=== PATIENT | female | born 1995 | race Two or more races ===

== ENCOUNTER 2025-11-25 10:31 | Inpatient (IN) | payer OTHER ==
[~2025-11-25] VITALS: Ht 165.1 cm; Wt 105.4 kg
[2025-11-25] VITALS (8 sets, daily range): BP systolic 113–128; BP diastolic 62–67; PULSE 96–130; RESP 24–60; TEMP 98.7–99.8; O2SAT 99–100
[2025-11-25 10:55] LABS: ABG BASE EXCESS 3.2 mmol/L (-2.0-3.0); ABG CARBOXYHEMOGLOBIN 1.6 % (0.5-1.5); ABG HCO3 26.7 mmol/L (21.0-28.0); ABG METHEMOGLOBIN 0.9 % (0.0-1.5); ABG OXYGEN CONTENT 17.7 mL/dL (15.0-23.0); ABG OXYGEN SATURATION 99.8 % (94.0-98.0); ABG OXYHEMOGLOBIN 97.3 % (94.0-98.0); ABG PCO2 50 mmHg (32.0-45.0); ABG PH 7.374 (7.350-7.450); ABG TOTAL HEMOGLOBIN 12.7 G/dL (12.0-16.0); FRACTIONATED INSPIRED OXYGEN 100.0 % (21-100.0); PO2, ARTERIAL BG 180.0 mmHg (83.0-108.0); SOURCE, BLOOD GAS ARTERIAL; TEMPERATURE, FAHRENHEIT, BG 98.6 FAHREN (96.0-98.6)
[2025-11-25 10:57] LABS: ALLEN TEST, BLOOD GAS POS; O2 DEVICE,BLOOD GAS BIPAP (ROOM AIR); PATIENT RATE, BG 62.0 min.; SET RATE, BG 24.0 min.; SITE, BLOOD GAS RT RADIAL; SPONTANEOUS VT, BG 443 ml
[2025-11-25 10:58] LABS: INSPIRATORY TIME, BG 0.9 SEC
[2025-11-25] MEDS: FUROSEMIDE 40 MG/4 ML VIAL IVP ONE (11:00)
[2025-11-25] MEDS: NITROGLYCERIN 2% (1 GM=INCH) OINTMENT PACKET TP ONE (11:00)
[2025-11-25 11:01] LABS: PLATELET COUNT (AUTO) 414 K/uL (150-450); RED BLOOD CELL COUNT(AUTO) 4.57 MIL/uL (4.00-5.20); RED CELL DISTRIBUTION WIDTH 16.2 % (11.5-14.5); WHITE BLOOD COUNT (AUTO) 18.9 K/uL (4.5-11.0)
[2025-11-25 11:02] LABS: RBC MORPHOLOGY COMMENT ABNORMAL RBC MORPH
[2025-11-25 11:10] LABS: CALCIUM, TOTAL 8.4 mg/dL (8.8-10.5); CREATININE 0.87 mg/dL (0.60-1.30); GLOMERULAR FILTR. RATE CALC > 60 mL/min (>60); GLUCOSE,RANDOM 161 mg/dL (70-110); SODIUM SERUM 136 mmol/L (136-145); UREA NITROGEN, BLOOD 11 mg/dL (7-18)
[2025-11-25 11:19] LABS: TROPONIN I-HIGH SENSITIVITY 29 ng/L (<51)
[2025-11-25 11:56] LABS: LACTIC ACID 2.7 mmol/L (0.4-2.0)
[2025-11-25] MEDS: ACETAMINOPHEN 1000 MG/ISO-OSM 100 ML IV ONE (12:03)
[2025-11-25] MEDS: CefTRIAXone 1 GM/DEXTROSE 50 ML IV ONE (12:31)
[2025-11-25] MEDS: AZITHROMYCIN 500 MG/NS 250 ML IV ONE (12:31)
[2025-11-25] MEDS: SODIUM CHLORIDE 0.9% 1,000 ML IV ONE ×2 (12:32→13:30)
[2025-11-25 12:38] LABS: APPEARANCE,URINE CLEAR (CLEAR); GLUCOSE, URINE (UA) NEGATIVE (NEGATIVE); LEUKOCYTE ESTERASE ,URINE NEGATIVE (NEGATIVE); NITRATE,URINE NEGATIVE (NEGATIVE); OCCULT BLOOD,URINE NEGATIVE (NEGATIVE); SPECIFIC GRAVITIY, URINE 1.009 (1.003-1.030)
[2025-11-25] MEDS: *CLINICAL-LEVOFLOXACIN IVPB DOSING CLINICAL ONE (12:42)
[2025-11-25] MEDS ORDERED: ALBUTEROL SULFATE 2.5 MG/0.5 ML NEB SOLUTION NEB PRN (12:45)
[2025-11-25] MEDS ORDERED: ONDANSETRON HCL 4 MG/2 ML VIAL IVP PRN (12:45)
[2025-11-25] MEDS ORDERED: ACETAMINOPHEN 325 MG TABLET PO PRN (12:45)
[2025-11-25] MEDS ORDERED: MAGNESIUM HYDROXIDE SUSPENSION 30 ML UDCUP PO PRN (12:45)
[2025-11-25] MEDS: KETOROLAC TROMETHAMINE 30 MG/ML VIAL IVP ONE (13:25)
[2025-11-25] MEDS: LEVOFLOXACIN 750 MG/D5% WATER 150 ML IV SCH (13:37)
[2025-11-25 13:44] LABS: ASPARTATE AMINOTRANSFERASE 17.0 U/L (15-37); TOTAL PROTEIN, SERUM 7.4 g/dL (6.4-8.2)
[2025-11-25] MEDS: HEPARIN SODIUM,PORCINE 5,000 UNITS/ML VIAL SQ SCH (16:08)
[2025-11-25 17:17] LABS: INFLUENZA A-RTPCR,COMBO NEGATIVE (NEGATIVE); INFLUENZA B-RTPCR,COMBO NEGATIVE (NEGATIVE); RESPIRATORY SYNCYTIAL VRS-PCR NEGATIVE (NEGATIVE); SARS COVID19 RTPCR, COMBO NEGATIVE (NEGATIVE)
[2025-11-25] MEDS: HYDROCORTISONE SOD SUCC 100 MG/2 ML VIAL IVP SCH (19:14)
[2025-11-25] MEDS: DOCUSATE SODIUM 100 MG CAPSULE PO SCH (20:27)
[2025-11-25] MEDS: PIPERACILLIN/TAZO 3.375 GM/D5W 50 ML IV SCH (21:13)
[2025-11-25] MEDS: CHLORHEXIDINE GLUCONATE 2% TOWELETTE [2'S/6'S] TP SCH (21:14)
[2025-11-25] MEDS ORDERED: SODIUM CHLORIDE 0.9% 250 ML IV ONE (21:34)
[2025-11-26] VITALS (9 sets, daily range): BP systolic 115–137; BP diastolic 70–92; PULSE 87–109; RESP 15–29; TEMP 98.1–99.3; O2SAT 95–100
[2025-11-26 07:16] LABS: PLATELET COUNT (AUTO) 367 K/uL (150-450); RED BLOOD CELL COUNT(AUTO) 3.88 MIL/uL (4.00-5.20); RED CELL DISTRIBUTION WIDTH 15.7 % (11.5-14.5); WHITE BLOOD COUNT (AUTO) 15.3 K/uL (4.5-11.0)
[2025-11-26 07:20] LABS: CALCIUM, TOTAL 8.3 mg/dL (8.8-10.5); CREATININE 0.64 mg/dL (0.60-1.30); GLOMERULAR FILTR. RATE CALC > 60 mL/min (>60); GLUCOSE,RANDOM 133 mg/dL (70-110); SODIUM SERUM 137 mmol/L (136-145); UREA NITROGEN, BLOOD 13 mg/dL (7-18)
[2025-11-26] MEDS: FAMOTIDINE 20 MG TABLET PO SCH (08:42)
[2025-11-26 11:47] LABS: ABG A-A DIFF O2 116.3 mmHg (10-20.0); ABG BASE EXCESS 3.8 mmol/L (-2.0-3.0); ABG CARBOXYHEMOGLOBIN 0.6 % (0.5-1.5); ABG HCO3 27.3 mmol/L (21.0-28.0); ABG METHEMOGLOBIN 0.3 % (0.0-1.5); ABG OXYGEN CONTENT 14.3 mL/dL (15.0-23.0); ABG OXYGEN SATURATION 96.2 % (94.0-98.0); ABG OXYHEMOGLOBIN 95.3 % (94.0-98.0); ABG PCO2 49 mmHg (32.0-45.0); ABG PH 7.386 (7.350-7.450); ABG TOTAL HEMOGLOBIN 10.6 G/dL (12.0-16.0); ALLEN TEST, BLOOD GAS Positive; FLOW, BLOOD GAS 4.00 L/min (0.00-15.00); FRACTIONATED INSPIRED OXYGEN 36.0 % (21-100.0); O2 DEVICE,BLOOD GAS CANNULA (ROOM AIR); PATIENT RATE, BG 18.0 min.; PO2, ARTERIAL BG 83.2 mmHg (83.0-108.0); SITE, BLOOD GAS RT RADIAL; SOURCE, BLOOD GAS ARTERIAL; TEMPERATURE, FAHRENHEIT, BG 98.7 FAHREN (96.0-98.6)
[2025-11-27] VITALS: BP 110/72; PULSE 89; RESP 21; RESP 22; TEMP 98.4; O2SAT 97; O2SAT 98
[2025-11-27 01:46] VITALS: PULSE 97; RESP 25; O2SAT 100
[2025-11-27 04:00] VITALS: PULSE 95; RESP 20; O2SAT 99
[2025-11-27 04:47] VITALS: PULSE 89; RESP 21; O2SAT 99
[2025-11-27 06:30] LABS: PLATELET COUNT (AUTO) 391 K/uL (150-450); RED BLOOD CELL COUNT(AUTO) 4.00 MIL/uL (4.00-5.20); RED CELL DISTRIBUTION WIDTH 15.5 % (11.5-14.5); WHITE BLOOD COUNT (AUTO) 12.4 K/uL (4.5-11.0)
[2025-11-27 06:34] LABS: CALCIUM, TOTAL 8.6 mg/dL (8.8-10.5); CREATININE 0.52 mg/dL (0.60-1.30); GLOMERULAR FILTR. RATE CALC > 60 mL/min (>60); GLUCOSE,RANDOM 155 mg/dL (70-110); SODIUM SERUM 137 mmol/L (136-145); UREA NITROGEN, BLOOD 13 mg/dL (7-18)
[2025-11-27 08:00] VITALS: BP 121/81; PULSE 92; RESP 40; TEMP 98.7; O2SAT 94
[2025-11-27 09:30] LABS: RBC MORPHOLOGY COMMENT ABNORMAL RBC MORPH
[2025-11-27 12:00] VITALS: BP 133/88; PULSE 91; RESP 39; TEMP 98.9; O2SAT 93
[2025-11-29 13:07] LABS: LEGIONELLA PNEUMO AG URINE Negative (Negative)
[2025-11-29 14:07] LABS: S PNEUMO SOURCE Urine; STREP PNEUMONIAE AG URINE Negative (Negative)
== END 2025-11-27 15:00 | disposition short-term general hospital (02) | DRG 871 ==
LOC: EMS 10:31 → EDBD 12:37 → EDH 12:37 → ICU 15:58
PROVIDERS: ADMIT Internal Medicine; ATTEND Internal Medicine
PROC: 5A09357 Assistance with Respiratory Ventilation, Less than 24 Consecutive Hours, Continuous Positive Airway Pressure (ICD-10-PCS; principal; 2025-11-25)
PROC: 5A09357 Assistance with Respiratory Ventilation, Less than 24 Consecutive Hours, Continuous Positive Airway Pressure (ICD-10-PCS; 2025-11-26)
PROC: 5A09357 Assistance with Respiratory Ventilation, Less than 24 Consecutive Hours, Continuous Positive Airway Pressure (ICD-10-PCS; 2025-11-27)
DX: A41.9 Sepsis, unspecified organism (principal); J18.9 Pneumonia, unspecified organism; J96.21 Acute and chronic respiratory failure with hypoxia; J96.22 Acute and chronic respiratory failure with hypercapnia; E87.29 Other acidosis; E44.0 Moderate protein-calorie malnutrition; J81.1 Chronic pulmonary edema; Z68.44 Body mass index [BMI] 60.0-69.9, adult; D64.9 Anemia, unspecified; J45.909 Unspecified asthma, uncomplicated; G47.33 Obstructive sleep apnea (adult) (pediatric); Z68.38 Body mass index [BMI] 38.0-38.9, adult
CPT/HCPCS: 71045; 80048; 80076; 81003; 82805; 83605; 83880; 84145; 84484; 85025; 85379; 85610; 85730; 87040; 87081; 87449; 87637; 87899; 93005; 94660; 96365; 96367; 96368; 96375; 99285; J0131; J0456; J0696; J1644; J1720; J1885; J1938; J1956; J2543; J7050; 36415-L1; 36415-TC